=== PATIENT | male | born 1945 | race Caucasian/White ===

== ENCOUNTER 2020-05-25 15:42 | Observation (INO) ==
[2020-05-25 16:26] LABS: Basophils # 0.1 K/mcL (0.0-0.2); Basophils % 0.6 %; Eosinophils # 0.4 K/mcL (0.0-0.6); Eosinophils % 3.5 %; Hematocrit 43.5 % (37.5-50.1); Hemoglobin 14.5 g/dL (12.9-16.9); Immature Granulocytes % 0.4 % (0-4); Lymphocytes # 1.1 K/mcL (0.6-4.6); Lymphocytes % 10.1 %; Mean Corpuscular HGB Conc 33.3 g/dL (31.6-35.5); Mean Corpuscular Hemoglobin 30.7 pg (28.0-33.3); Mean Platelet Volume 10.6 fL (9.4-12.4); Monocytes # 0.8 K/mcL (0.0-1.3); Monocytes % 7.2 %; Neutrophils # 8.3 K/mcL (1.6-8.9); Platelet Count 220 K/mcL (140-400); Red Blood Count 4.73 M/mcL (4.19-5.50); Red Cell Distribution Width 13.4 % (11.5-14.5); Segmented Neutrophils % 78.2 %; White Blood Count 10.6 K/mcL (4.3-11.1)
[2020-05-25] MEDS ORDERED: *HR* Metoprolol 5 MG/5 ML VIAL IVP ONE (16:26)
[2020-05-25 16:34] LABS: BUN/Creatinine Ratio 13 (6-26); Blood Urea Nitrogen 20 mg/dL (8-23); Calcium 9.9 mg/dL (8.6-10.3); Carbon Dioxide 26 mEq/L (23-29); Chloride 98 mEq/L (98-107); Glucose 152 mg/dL (70-105); Osmolality,Calculated 292 (280-300); Potassium 4.1 mEq/L (3.5-5.1); Sodium 138 mEq/L (136-145); Troponin I < 0.03 ng/mL (< 0.04); eGFR For African Americans 55 (> 60); eGFR For Non-African Americans 45 (> 60)
[2020-05-25 17:07] LABS: Magnesium 1.4 mg/dL (1.6-2.6)
[2020-05-25 17:11] LABS: Thyroid Stimulating Hormone 1.555 mcIU/mL (0.340-5.600)
[2020-05-25] MEDS ORDERED: *HR* Metoprolol 5 MG/5 ML VIAL IVP PRN (17:58)
[2020-05-25] MEDS ORDERED: D5% in Water 1,000 ML IVC PRN (18:00)
[2020-05-25] MEDS ORDERED: Dextrose Gel 15 GM/37.5 ML TUBE PO PRN ×2 (18:00)
[2020-05-25] MEDS ORDERED: Perflutren Lipid Microsphere 1.3 ML in 0.9 % Sodium Chloride 8.7 ML IVP PRN (18:00)
[2020-05-25] MEDS ORDERED: *HR* Dextrose 50 % in Water (Vial) 50 ML VIAL IVP PRN (18:00)
[2020-05-25] MEDS ORDERED: Naloxone 0.4 MG/ML INJ IVP PRN (18:10)
[2020-05-25] MEDS ORDERED: Ibuprofen 400 MG TABLET PO PRN (18:10)
[2020-05-25] MEDS ORDERED: Acetaminophen 325 MG TABLET PO PRN (18:10)
[2020-05-25] MEDS: Metoprolol 100 MG TABLET PO SCH ×2 (20:08→20:09)
[2020-05-25] MEDS: Furosemide 40 MG/4 ML VIAL IVP SCH (20:09)
[2020-05-25] MEDS: Insulin LISPRO 300 UNITS/3 ML VIAL SUBQ SCH ×2 (20:55→23:53)
[2020-05-26 00:29] LABS: Hematocrit 42.7 % (37.5-50.1); Hemoglobin 14.3 g/dL (12.9-16.9); Mean Corpuscular HGB Conc 33.5 g/dL (31.6-35.5); Mean Corpuscular Hemoglobin 30.4 pg (28.0-33.3); Mean Corpuscular Volume 90.7 fL (83.0-100.0); Mean Platelet Volume 10.2 fL (9.4-12.4); Platelet Count 208 K/mcL (140-400); Red Blood Count 4.71 M/mcL (4.19-5.50); Red Cell Distribution Width 13.2 % (11.5-14.5); White Blood Count 10.1 K/mcL (4.3-11.1)
[2020-05-26 00:51] LABS: Albumin/Globulin Ratio 1.2 (1.1-2.2); Bilirubin,Total 1.9 mg/dL (0.3-1.0); Calcium 9.6 mg/dL (8.6-10.3); Globulin 3.4 g/dL (2.4-3.5); Magnesium 1.4 mg/dL (1.6-2.6); Potassium 3.8 mEq/L (3.5-5.1); Total Protein 7.4 g/dL (6.4-8.9)
[2020-05-26] MEDS: Insulin LISPRO 300 UNITS/3 ML VIAL SUBQ SCH ×2 (05:13→12:24)
[2020-05-26] MEDS: Metoprolol 100 MG TABLET PO SCH (07:13)
[2020-05-26] MEDS: Furosemide 40 MG/4 ML VIAL IVP SCH (07:13)
[2020-05-26 16:26] VITALS: BP 131/80
[2020-05-26] MEDS ORDERED: *HR* Rivaroxaban 15 MG TABLET PO SCH (17:00)
== END 2020-05-26 17:42 | disposition home or self-care (01) ==
LOC: EMEROOARM 15:42 → 2ANU 15:42
PROVIDERS: ADMIT Internal Medicine; ATTEND Internal Medicine